=== PATIENT | female | born 1940 | race American Indian/Alaskan Native ===

== ENCOUNTER 2018-04-23 09:48 | Inpatient (IN) | payer MEDICARE, OTHER ==
[~2018-04-23] VITALS: Ht 144.8 cm; Wt 42.0 kg
[~2018-04-23 09:48] MED LIST: epiNEPHrine 0.1mg/ml 10ml syringe ONE; etomidate 2mg/ml inj. ONE; rocuronium 10mg/ml inj IV ONE; sodium bicarbonate (8.4%) 1 mEq/ml syringe ONE
[2018-04-23] MEDS ORDERED: normal saline 1000ML IV soln IV ONE (09:55)
[2018-04-23] MEDS ORDERED: normal saline 1000ML IV soln IVB ONE (10:05)
[2018-04-23 10:58] LABS: CLARITY,URINE TURBID (Clear); COLOR,URINE RED (Yellow); UA COLLECTION TYPE FOLEY CATH
[2018-04-23] MEDS ORDERED: NORepinephrine 1 mg/ml inj IV ONE (10:58)
[2018-04-23 11:00] LABS: BACTERIA,URINE 3+ /HPF (Neg); MUCUS STRANDS NONE SEEN /LPF (Neg); RBC,URINE TNTC /HPF (0-2); SQUAMOUS EPITHELIAL CELL,UR FEW /LPF (FEW); WBC CLUMPS,URINE MANY /HPF (NEGATIVE); WBC,URINE TNTC /HPF (0-4)
[2018-04-23] MEDS ORDERED: furosemide 10 MG/1 ML 10ml inj IV ONE ×2 (11:05→11:15)
[2018-04-23 11:07] LABS: HEMATOCRIT 31.1 % (35.0-45.0); HEMOGLOBIN 10.5 g/dl (12.0-16.0); MEAN CORPUSCULAR HEMOGLOBIN 31.2 PG (27.0-31.0); MEAN CORPUSCULAR HGB CONC 33.7 % (33.0-36.5); MEAN CORPUSCULAR VOLUME 92.4 FL (78-98); MEAN PLATELET VOLUME 7.5 FL (7.4-10.4); PLATELET COUNT 260 X10'3 (140-440); RED BLOOD COUNT 3.36 X10'6 (4.20-5.60); RED CELL DISTRIBUTION WIDTH 13.1 % (11.5-14.5); WHITE BLOOD COUNT 11.5 X10'3 (4.5-11.0)
[2018-04-23] MEDS: NORepinephrine 8mg/ 250ml NS 250 ML IV PRN ×2 (11:12→16:26)
[2018-04-23] MEDS ORDERED: morphine 2 MG/ML inj. syringe IV PRN (11:15)
[2018-04-23] MEDS ORDERED: acetaminophen 325mg tablet PO PRN ×2 (11:15)
[2018-04-23] MEDS ORDERED: ondansetron/PF 4mg/2ml inj IV PRN (11:15)
[2018-04-23 11:29] LABS: PLATELET ESTIMATE NORMAL; TOTAL CELLS COUNTED 100; TOXIC VACUOLATION 1+
[2018-04-23 11:30] LABS: BURR CELLS 2+; TOXIC GRANULATION 1+
[2018-04-23] MEDS ORDERED: LEVO75TA PO (11:31)
[2018-04-23 11:38] LABS: ALANINE AMINOTRANSFERASE 16 U/L (12-78); ALBUMIN 1.4 G/DL (3.4-5.0); ALBUMIN/GLOBULIN RATIO 0.4 (1.1-1.5); ALKALINE PHOSPHATASE 72 IU/L (46-116); ANION GAP 17 (8-16); ASPARTATE AMINO TRANSFERASE 59 U/L (10-37); BILIRUBIN,TOTAL 1.2 MG/DL (0.1-1.0); BLOOD UREA NITROGEN 86 MG/DL (7-18); BUN/CREATININE RATIO 18.5 (6.6-38.0); CHLORIDE 99 MMOL/L (99-107); CREATININE 4.65 MG/DL (0.40-0.90); GLUCOSE 98 MG/DL (70-104); POTASSIUM 4.2 MMOL/L (3.5-5.1); SODIUM 130 MMOL/L (135-145); TOTAL PROTEIN 5.1 G/DL (6.4-8.2); eGFR 9 ML/MIN
[2018-04-23] MEDS ORDERED: levoFLOXACIN-Levaquin 500mg/D5 100 ML IV ONE (11:40)
[2018-04-23 11:44] LABS: TOTAL CARBON DIOXIDE 13.9 MMOL/L (24-32)
[2018-04-23] MEDS ORDERED: calcium chloride inj. 1,000 MG in normal saline 100ml IV soln 90 ML IV ONE ×2 (12:30→13:15)
[2018-04-23] MEDS ORDERED: metoclopramide 5 mg/ml inj IV ONE (12:30)
[2018-04-23] MEDS ORDERED: lactulose 20gm/30ml cup PO ONE (12:30)
[2018-04-23 12:57] LABS: ALBUMIN 1.6 G/DL (3.4-5.0); ANION GAP 23 (8-16); BLOOD UREA NITROGEN 87 MG/DL (7-18); BUN/CREATININE RATIO 17.2 (6.6-38.0); CALCIUM 6.5 MG/DL (8.5-10.1); CHLORIDE 98 MMOL/L (99-107); CREATININE 5.07 MG/DL (0.40-0.90); GLUCOSE 128 MG/DL (70-104); SODIUM 129 MMOL/L (135-145); eGFR 8 ML/MIN
[2018-04-23 13:03] LABS: TOTAL CARBON DIOXIDE 8.4 MMOL/L (24-32)
[2018-04-23] MEDS ORDERED: SODIUM BICARBONATE IV SCH (13:20)
[2018-04-23] MEDS ORDERED: SODIUM CHLORIDE 0.45% IV SCH (13:20)
[2018-04-23 13:45] VITALS: BP 116/76
[2018-04-23] MEDS ORDERED: midazolam 100mg in NS 100ml 100 ML IV PRN (14:24)
[2018-04-23] MEDS ORDERED: FENTANYL-0.9 % NACL/PF 100 ML IV PRN (14:24)
[2018-04-23] MEDS ORDERED: fentaNYL/PF 50MCG/1 ML 2ML syringe IV PRN (14:25)
[2018-04-23] MEDS ORDERED: DOBUTamine-DoBUTrex 500mg/D5W 250 ML IV SCH (14:25)
[2018-04-23] MEDS ORDERED: midazolam 2 mg/2 ml injection IV ONE (14:25)
[2018-04-23] MEDS ORDERED: sodium bicarbonate (8.4%) inj. 150 MEQ in sodium chloride 0.45% 1,000 ML IV SCH (14:30)
[2018-04-23 14:49] LABS: TOTAL PROTEIN,URINE RANDOM 919.2 MG/DL
[2018-04-23 14:55] LABS: BASOPHILS % (AUTO) 0.1 % (0-1); EOSINOPHILS % (AUTO) 0.1 % (0-6); HEMOGLOBIN 8.4 g/dl (12.0-16.0); LYMPHOCYTES # (AUTO) 1.5 X10'3 (1.1-4.8); MEAN CORPUSCULAR HEMOGLOBIN 30.6 PG (27.0-31.0); MEAN CORPUSCULAR HGB CONC 32.6 % (33.0-36.5); MEAN CORPUSCULAR VOLUME 94.1 FL (78-98); MEAN PLATELET VOLUME 7.7 FL (7.4-10.4); MONOCYTES # (AUTO) 0.2 X10'3 (0-0.9); MONOCYTES % (AUTO) 1.6 % (2-12); NEUTROPHILS # (AUTO) 10.1 X10'3 (1.8-7.7); NEUTROPHILS % (AUTO) 85.2 % (42-75); PLATELET COUNT 221 X10'3 (140-440); RED BLOOD COUNT 2.76 X10'6 (4.20-5.60); RED CELL DISTRIBUTION WIDTH 13.2 % (11.5-14.5); WHITE BLOOD COUNT 11.8 X10'3 (4.5-11.0)
[2018-04-23 15:20] LABS: ALANINE AMINOTRANSFERASE 18 U/L (12-78); ALBUMIN 1.1 G/DL (3.4-5.0); ALBUMIN/GLOBULIN RATIO 0.4 (1.1-1.5); ALKALINE PHOSPHATASE 66 IU/L (46-116); ASPARTATE AMINO TRANSFERASE 59 U/L (10-37); BILIRUBIN,TOTAL 0.9 MG/DL (0.1-1.0); BLOOD UREA NITROGEN 75 MG/DL (7-18); BUN/CREATININE RATIO 16.5 (6.6-38.0); CHLORIDE 108 MMOL/L (99-107); CREATININE 4.55 MG/DL (0.40-0.90); GLUCOSE 190 MG/DL (70-104); POTASSIUM 4.9 MMOL/L (3.5-5.1); SODIUM 135 MMOL/L (135-145); TOTAL PROTEIN 4.1 G/DL (6.4-8.2); eGFR 9 ML/MIN
[2018-04-23] MEDS ORDERED: vancomycin/NS 1 GM ADD-VANTAGE 250 ML IV ONE (15:25)
[2018-04-23] MEDS ORDERED: cefepime 1GM/NS ADD-VANTAGE 100 ML IV ONE (15:25)
[2018-04-23 15:35] LABS: ANION GAP 22 (8-16)
[2018-04-23 15:36] LABS: ABG BASE EXCESS -29.9 mmol/L (-2.0-3.0); ABG HCO3 2.7 mmol/L (22.0-26.0); ABG OXYGEN SATURATION 99.5 % (95-98); ABG PCO2 (T) 16.6 mmHg (32.0-45.0); ABG PH (T) 6.834 (7.350-7.450); FCOHb 0.2 % (0.5-1.5); FMetHb 0.3 % (0.3-1.12); MINUTE VOLUME 8 L/min; PEEP 5 cm H2O; RESPIRATORY RATE 20 b/min; TIDAL VOLUME 400 mL
[2018-04-23] MEDS ORDERED: vasopressin inj. 60 UNIT in normal saline 100ml IV soln 97 ML IV SCH (15:40)
[2018-04-23] MEDS ORDERED: vancomycin/NS 1 GM ADD-VANTAGE 250 ML IV PRN (15:45)
[2018-04-23 15:48] LABS: TOTAL CARBON DIOXIDE < 5 MMOL/L (24-32)
[2018-04-23 15:49] LABS: CALCIUM 14.7 MG/DL (8.5-10.1)
[2018-04-23] MEDS ORDERED: sodium bicarbonate (8.4%) 1 mEq/ml syringe IV ONE (15:50)
[2018-04-23] MEDS ORDERED: cefepime 1GM/NS ADD-VANTAGE 100 ML IV SCH (16:00)
[2018-04-23] MEDS ORDERED: heparin 25,000 UNIT/250ml bag 250 ML IV SCH ×2 (16:22→16:35)
[2018-04-23] MEDS ORDERED: heparin 10,000 units/1 ML INJ IV ONE ×2 (16:25→16:35)
[2018-04-23] MEDS ORDERED: heparin 10,000 units/1 ML INJ IV PRN ×2 (16:25→16:35)
[2018-04-23 16:26] VITALS: BP_SYST 80
[2018-04-23] MEDS ORDERED: potassium Cl 20mEq/100mL bag 100 ML IV PRN (16:35)
[2018-04-23] MEDS ORDERED: magnesium 4gm in 100ml NS 100 ML IV PRN (16:35)
[2018-04-23] MEDS ORDERED: calcium chloride inj. 1,000 MG in normal saline 100ml IV soln 100 ML IV PRN (16:35)
[2018-04-23] MEDS ORDERED: sodium phosphate inj. 30 MMOL in normal saline 250ml IV soln 250 ML IV PRN (16:35)
[2018-04-23] MEDS ORDERED: sodium bicarbonate (8.4%) inj. 150 MEQ in dextrose 5%-water 1,000 ML IV SCH (17:00)
[2018-04-23] MEDS: BICARB DIALYSIS W/CALCIUM SOL 5,000 ML HE SCH ×3 (18:12→18:14)
[2018-04-24] MEDS ORDERED: VANCOMYCIN LEVEL IV SCH (03:00)
[2018-04-24] MEDS ORDERED: cefepime 1GM/NS ADD-VANTAGE 100 ML IV SCH (08:00)
[2018-04-24] MEDS ORDERED: enoxaparin 40mg/0.4ml syringe SUBCUT SCH (08:00)
[2018-04-24] MEDS ORDERED: pantoprazole 40 MG vial IV SCH (12:00)
[2018-04-24] MEDS ORDERED: vancomycin/NS 1 GM ADD-VANTAGE 250 ML IV SCH (20:00)
[2018-04-24] MEDS ORDERED: mineral oil/petrolatum ophthal oint EACHEYE SCH (20:00)
== END 2018-04-23 18:35 | disposition expired | DRG 871 ==
LOC: ER 09:48 → ED HOLD 11:11 → ICU 2S 13:00 → CMPBEDREQ 13:11
PROVIDERS: ADMIT Internal Medicine Critical Care Medicine; ATTEND Internal Medicine Critical Care Medicine
PROC: 0BH17EZ Insertion of Endotracheal Airway into Trachea, Via Natural or Artificial Opening (ICD-10-PCS; principal; 2018-04-23)
PROC: 5A1935Z Respiratory Ventilation, Less than 24 Consecutive Hours (ICD-10-PCS; 2018-04-23)
PROC: 02HV33Z Insertion of Infusion Device into Superior Vena Cava, Percutaneous Approach (ICD-10-PCS; 2018-04-23)
PROC: 06HN33Z Insertion of Infusion Device into Left Femoral Vein, Percutaneous Approach (ICD-10-PCS; 2018-04-23)
DX: A41.9 Sepsis, unspecified organism (principal); J18.1 Lobar pneumonia, unspecified organism; R65.21 Severe sepsis with septic shock; J96.00 Acute respiratory failure, unspecified whether with hypoxia or hypercapnia; I50.21 Acute systolic (congestive) heart failure; E87.2 Acidosis; K56.7 Ileus, unspecified; N17.9 Acute kidney failure, unspecified; N13.6 Pyonephrosis; F03.90 Unspecified dementia, unspecified severity, without behavioral disturbance, psychotic disturbance, mood disturbance, and anxiety; Z66 Do not resuscitate; B95.61 Methicillin susceptible Staphylococcus aureus infection as the cause of diseases classified elsewhere; I46.9 Cardiac arrest, cause unspecified; K56.41 Fecal impaction; N18.9 Chronic kidney disease, unspecified; Z79.890 Hormone replacement therapy; Z79.899 Other long term (current) drug therapy; Z85.3 Personal history of malignant neoplasm of breast; Z92.21 Personal history of antineoplastic chemotherapy
CPT/HCPCS: 36415; 36556; 36600; 71045; 74018; 74176; 76775; 80048; 80053; 81001; 82330; 82570; 82803; 83605; 83735; 83880; 84145; 84156; 84300; 85018; 85025; 87040; 87070; 87077; 87088; 87186; 93005; 93306; 94002; 94760; 96374; 99291; G0378; J0171; J0692; J1250; J1940; J2250; J2765; J3370; J3490; J7030